=== PATIENT | female | born 1995 | race Caucasian/White ===

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

== ENCOUNTER 2019-11-19 01:31 | Emergency (ER) | payer OTHER ==
[~2019-11-19] VITALS: Ht 162.5 cm; Wt 122.5 kg
[2019-11-19 01:47] VITALS: BP 127/68
[2019-11-19 02:27] LABS: BILIRUBIN NEGATIVE (NEGATIVE); BLOOD 3+ (NEGATIVE); CLARITY CLOUDY (CLEAR); COLOR YELLOW (YELLOW); GLUCOSE NEGATIVE (NEGATIVE); KETONE NEGATIVE (NEGATIVE)
[2019-11-19 02:28] LABS: LEUKO ESTERASE 2+ (NEGATIVE); NITRITE POSITIVE (NEGATIVE); UROBILINOGEN 0.2 E.U./dl (0.2-1.0)
[2019-11-19 02:32] LABS: RBC TNTC rbc/hpf (0-2)
[2019-11-19 02:33] LABS: BACTERIA TRACE; WBC 41-50 wbc/hpf (0-5); YEAST 2+
[2019-11-19 02:38] LABS: BASO # 0.1 10*3/uL (0.0-0.1); BASO % 0.3 % (0.0-1.0); EOS # 0.1 10*3/uL (0.0-0.4); EOS % 0.3 % (1.0-4.0); HEMATOCRIT 43.2 % (37.0-47.0); LYMPH # 2.4 10*3/uL (1.3-4.4); LYMPH % 14.4 % (27.0-41.0); MEAN CELL VOLUME 84.4 fl (81.0-99.0); MEAN CORPUSCULAR HGB 26.4 pg (27.0-31.0); MEAN CORPUSCULAR HGB CONC 31.3 g/dl (33.0-37.0); MEAN PLATELET VOLUME 10.4 fl (9.6-12.3); MONO # 0.8 10*3/uL (0.1-1.0); MONO % 4.8 % (3.0-9.0); NEUT # 13.2 10*3/uL (2.3-7.9); NEUT % 79.9 % (47.0-73.0); PLATELET COUNT AUTOMATED 367 10*3/uL (130-400); RED BLOOD COUNT 5.12 10*6/uL (4.10-5.10); RED CELL DISTRI WIDTH 13.4 % (0-14.5); WHITE BLOOD COUNT 16.6 10*3/uL (4.8-10.8)
[2019-11-19 02:54] LABS: ALBUMIN 3.6 gm/dl (3.1-4.5); ALKALINE PHOSPHATASE 81 U/L (45-117); BUN 13 mg/dl (7-24); CHLORIDE 106 mmol/L (98-107); CREATININE 0.94 mg/dL (0.55-1.02); LIPASE 121 U/L (73-393); POTASSIUM 3.6 mmol/L (3.5-5.1); SGOT/AST 14 IU/L (3-35); SGPT/ALT 22 U/L (12-78); SODIUM 139 mmol/L (136-145); TOTAL PROTEIN 7.6 gm/dL (6.4-8.2)
[2019-11-19] MEDS ORDERED: CEPHALEXIN500 M1 PO ×2 (03:07→03:40)
== END 2019-11-19 03:42 | disposition home or self-care (01) ==
LOC: ED 01:31
PROVIDERS: Emergency Medicine
DX: N39.0 Urinary tract infection, site not specified (principal)

== ENCOUNTER 2019-12-19 18:33 | Emergency (ER) | payer OTHER ==
[~2019-12-19] VITALS: Wt 122.5 kg
[~2019-12-19 18:33] MED LIST changes: +CEPHALEXIN500 M1 PO
[2019-12-19 18:37] VITALS: BP 142/66
[2019-12-19 19:15] LABS: BILIRUBIN NEGATIVE (NEGATIVE); BLOOD NEGATIVE (NEGATIVE); CLARITY SL CLOUDY (CLEAR); COLOR YELLOW (YELLOW); GLUCOSE NEGATIVE (NEGATIVE); KETONE NEGATIVE (NEGATIVE); SPECIFIC GRAVITY 1.005 (1.005-1.030)
[2019-12-19 19:16] LABS: LEUKO ESTERASE NEGATIVE (NEGATIVE); NITRITE NEGATIVE (NEGATIVE); UROBILINOGEN 0.2 E.U./dl (0.2-1.0)
[2019-12-19 19:20] LABS: RBC 0-2 rbc/hpf (0-2); WBC 0-2 wbc/hpf (0-5)
[2019-12-19 19:21] LABS: BACTERIA 1+
[2019-12-19 19:36] LABS: BASO # 0.1 10*3/uL (0.0-0.1); BASO % 0.5 % (0.0-1.0); EOS # 0.1 10*3/uL (0.0-0.4); EOS % 0.5 % (1.0-4.0); HEMATOCRIT 43.8 % (37.0-47.0); LYMPH # 2.4 10*3/uL (1.3-4.4); LYMPH % 22.3 % (27.0-41.0); MEAN CELL VOLUME 84.9 fl (81.0-99.0); MEAN CORPUSCULAR HGB 26.9 pg (27.0-31.0); MEAN CORPUSCULAR HGB CONC 31.7 g/dl (33.0-37.0); MEAN PLATELET VOLUME 10.5 fl (9.6-12.3); MONO # 0.8 10*3/uL (0.1-1.0); MONO % 7.1 % (3.0-9.0); NEUT # 7.6 10*3/uL (2.3-7.9); NEUT % 69.3 % (47.0-73.0); PLATELET COUNT AUTOMATED 316 10*3/uL (130-400); RED BLOOD COUNT 5.16 10*6/uL (4.10-5.10); WHITE BLOOD COUNT 10.9 10*3/uL (4.8-10.8)
[2019-12-19 19:54] LABS: ALBUMIN 3.7 gm/dl (3.1-4.5); ALKALINE PHOSPHATASE 79 U/L (45-117); BUN 10 mg/dl (7-24); CHLORIDE 107 mmol/L (98-107); CREATININE 0.81 mg/dL (0.55-1.02); POTASSIUM 3.8 mmol/L (3.5-5.1); SGOT/AST 17 IU/L (3-35); SGPT/ALT 29 U/L (12-78); SODIUM 137 mmol/L (136-145)
[2019-12-19 19:57] LABS: BETA-HCG, QUANT < 1.0 mIU/mL (1-3)
[2019-12-19] MEDS ORDERED: ZOFRAN4 MG PO (20:04)
[2019-12-19] MEDS ORDERED: PRILOSEC20 M1 PO (20:04)
== END 2019-12-19 20:07 | disposition home or self-care (01) ==
LOC: ED 18:33
PROVIDERS: Emergency Medicine; Nurse Practitioner Family
DX: K29.70 Gastritis, unspecified, without bleeding (principal)

== ENCOUNTER 2020-02-06 12:51 | Emergency (ER) | payer OTHER ==
[~2020-02-06] VITALS: Ht 162.5 cm; Wt 127.0 kg
[~2020-02-06 12:51] MED LIST changes: +PRILOSEC20 M1 PO; +ZOFRAN4 MG PO
[2020-02-06 12:56] VITALS: BP 138/90
[2020-02-06] MEDS ORDERED: ESCITALOPRAM OX20 MG PO (12:57)
[2020-02-06] MEDS ORDERED: BUPROPION ER100 M1 PO (12:57)
== END 2020-02-06 13:54 | disposition home or self-care (01) ==
LOC: ED 12:51
DX: S60.212A Contusion of left wrist, initial encounter (principal); Z79.899 Other long term (current) drug therapy; W18.39XA Other fall on same level, initial encounter; Y93.89 Activity, other specified; Y92.89 Other specified places as the place of occurrence of the external cause; Y99.8 Other external cause status

== ENCOUNTER 2020-03-04 19:31 | Emergency (ER) | payer OTHER ==
[~2020-03-04] VITALS: Ht 162.5 cm; Wt 131.5 kg
[~2020-03-04 19:31] MED LIST changes: +BUPROPION ER100 M1 PO; +ESCITALOPRAM OX20 MG PO
[2020-03-04 20:11] LABS: BASO # 0.1 10*3/uL (0.0-0.1); BASO % 0.5 % (0.0-1.0); EOS # 0.1 10*3/uL (0.0-0.4); EOS % 0.5 % (1.0-4.0); HEMATOCRIT 42.2 % (37.0-47.0); LYMPH # 2.5 10*3/uL (1.3-4.4); LYMPH % 22.9 % (27.0-41.0); MEAN CELL VOLUME 84.9 fl (81.0-99.0); MEAN CORPUSCULAR HGB 27.2 pg (27.0-31.0); MEAN PLATELET VOLUME 10.2 fl (9.6-12.3); MONO # 0.8 10*3/uL (0.1-1.0); NEUT # 7.5 10*3/uL (2.3-7.9); NEUT % 68.8 % (47.0-73.0); PLATELET COUNT AUTOMATED 366 10*3/uL (130-400); RED BLOOD COUNT 4.97 10*6/uL (4.10-5.10); RED CELL DISTRI WIDTH 13.3 % (0-14.5); WHITE BLOOD COUNT 10.9 10*3/uL (4.8-10.8)
[2020-03-04 20:23] LABS: BILIRUBIN Negative (Negative); BLOOD Negative (Negative); CLARITY Clear (Clear); COLOR Yellow (Yellow); GLUCOSE Negative (Negative); KETONE Negative (Negative); LEUKO ESTERASE Negative (Negative); NITRITE Negative (Negative); PH 5.5 (4.5-8.0); SPECIFIC GRAVITY 1.015 (1.001-1.030); UROBILINOGEN 0.2 E.U./dl (0.0-1.0)
[2020-03-04 20:34] LABS: ALBUMIN 3.8 gm/dl (3.1-4.5); ALKALINE PHOSPHATASE 74 U/L (45-117); BUN 9 mg/dl (7-24); CHLORIDE 107 mmol/L (98-107); CREATININE 1.03 mg/dL (0.55-1.02); LIPASE 111 U/L (73-393); POTASSIUM 3.6 mmol/L (3.5-5.1); SGOT/AST 13 IU/L (3-35); SGPT/ALT 26 U/L (12-78); SODIUM 139 mmol/L (136-145); TOTAL PROTEIN 7.7 gm/dL (6.4-8.2)
[2020-03-04 20:43] LABS: BACTERIA 1+; RBC 0-2 rbc/hpf (0-2)
[2020-03-04 20:52] VITALS: BP 105/54
== END 2020-03-04 21:05 | disposition home or self-care (01) ==
LOC: ED 19:31
PROVIDERS: Physician Assistant
DX: R11.2 Nausea with vomiting, unspecified (principal); Z79.899 Other long term (current) drug therapy

== ENCOUNTER 2020-03-06 19:03 | Emergency (ER) | payer OTHER ==
[~2020-03-06] VITALS: Ht 162.5 cm; Wt 131.5 kg
[2020-03-06 19:53] LABS: BASO # 0.1 10*3/uL (0.0-0.1); BASO % 0.4 % (0.0-1.0); EOS % 0.2 % (1.0-4.0); HEMATOCRIT 46.1 % (37.0-47.0); LYMPH # 2.2 10*3/uL (1.3-4.4); LYMPH % 13.5 % (27.0-41.0); MEAN CELL VOLUME 84.7 fl (81.0-99.0); MEAN CORPUSCULAR HGB 26.8 pg (27.0-31.0); MEAN CORPUSCULAR HGB CONC 31.7 g/dl (33.0-37.0); MEAN PLATELET VOLUME 10.2 fl (9.6-12.3); MONO # 0.8 10*3/uL (0.1-1.0); MONO % 4.8 % (3.0-9.0); NEUT # 12.9 10*3/uL (2.3-7.9); NEUT % 80.8 % (47.0-73.0); PLATELET COUNT AUTOMATED 392 10*3/uL (130-400); RED BLOOD COUNT 5.44 10*6/uL (4.10-5.10); RED CELL DISTRI WIDTH 13.1 % (0-14.5)
[2020-03-06 20:14] LABS: ALBUMIN 3.8 gm/dl (3.1-4.5); ALKALINE PHOSPHATASE 76 U/L (45-117); BUN 9 mg/dl (7-24); CHLORIDE 108 mmol/L (98-107); CREATININE 0.92 mg/dL (0.55-1.02); LIPASE 113 U/L (73-393); POTASSIUM 3.9 mmol/L (3.5-5.1); SGOT/AST 13 IU/L (3-35); SGPT/ALT 27 U/L (12-78); SODIUM 139 mmol/L (136-145); TOTAL PROTEIN 8.1 gm/dL (6.4-8.2)
[2020-03-06 20:18] LABS: BILIRUBIN Negative (Negative); BLOOD 2+ (Negative); CLARITY Clear (Clear); COLOR Yellow (Yellow); GLUCOSE Negative (Negative); KETONE Trace (Negative); LEUKO ESTERASE Negative (Negative); NITRITE Negative (Negative); PH 5.5 (4.5-8.0); UROBILINOGEN 0.2 E.U./dl (0.0-1.0)
[2020-03-06 20:31] LABS: BACTERIA TRACE; WBC 0-2 wbc/hpf (0-5)
[2020-03-06 21:16] VITALS: BP 128/78
[2020-03-06] MEDS ORDERED: AUGMENTIN 875-875 MG PO ×2 (21:42)
[2020-03-06] MEDS ORDERED: ZOFRAN4 MG PO ×2 (21:42)
== END 2020-03-06 22:36 | disposition home or self-care (01) ==
LOC: ED 19:03
PROVIDERS: Nurse Practitioner Family
DX: R10.30 Lower abdominal pain, unspecified (principal); Z79.899 Other long term (current) drug therapy; Z87.891 Personal history of nicotine dependence

== ENCOUNTER 2020-04-27 04:02 | Emergency (ER) | payer OTHER ==
[~2020-04-27] VITALS: Ht 162.5 cm; Wt 131.5 kg
[~2020-04-27 04:02] MED LIST changes: +AUGMENTIN 875-875 MG PO
[2020-04-27 04:10] VITALS: BP 125/76
== END 2020-04-27 06:50 | disposition home or self-care (01) ==
LOC: ED 04:02
DX: J02.9 Acute pharyngitis, unspecified (principal); R51.9 Headache, unspecified

== ENCOUNTER 2021-01-01 21:05 | Emergency (ER) | payer OTHER ==
[2021-01-01 21:11] VITALS: BP 147/93
[2021-01-01] MEDS ORDERED: AMOXICILLIN500 M2 PO (21:27)
== END 2021-01-01 21:34 | disposition home or self-care (01) ==
LOC: ED 21:05
DX: J02.9 Acute pharyngitis, unspecified (principal)

== ENCOUNTER 2021-01-08 16:42 | Emergency (ER) | payer OTHER ==
[~2021-01-08] VITALS: Ht 162.5 cm; Wt 130.6 kg
[~2021-01-08 16:42] MED LIST changes: +AMOXICILLIN500 M2 PO
[2021-01-08 16:53] VITALS: BP 116/62
== END 2021-01-08 17:22 ==
LOC: ED 16:42
DX: U07.1 COVID-19 (principal); R05 Cough; R06.02 Shortness of breath; R10.9 Unspecified abdominal pain; R11.10 Vomiting, unspecified

== ENCOUNTER 2021-11-23 13:36 | Emergency (ER) | payer OTHER ==
[~2021-11-23] VITALS: Ht 162.5 cm; Wt 127.9 kg
[2021-11-23 13:55] VITALS: BP 126/89
[2021-11-23] MEDS ORDERED: NIKKI 3 MG-0.01 EAC1 PO (13:56)
[2021-11-23] MEDS ORDERED: OXCARBAZEPINE300 M1 PO (13:57)
[2021-11-23] MEDS ORDERED: ATOMOXETINE HCL80 MG PO (13:57)
[2021-11-23] MEDS ORDERED: VENLAFAXINE HYD75 M3 PO (13:57)
[2021-11-23 16:15] LABS: BASO # 0.1 10*3/uL (0.0-0.1); BASO % 0.6 % (0.0-1.0); EOS # 0.2 10*3/uL (0.0-0.4); EOS % 1.2 % (1.0-4.0); HEMATOCRIT 40.8 % (37.0-47.0); LYMPH # 3.2 10*3/uL (1.3-4.4); LYMPH % 25.3 % (27.0-41.0); MEAN CELL VOLUME 89.3 fl (81.0-99.0); MEAN CORPUSCULAR HGB 29.1 pg (27.0-31.0); MEAN CORPUSCULAR HGB CONC 32.6 g/dl (33.0-37.0); MEAN PLATELET VOLUME 10.8 fl (9.6-12.3); MONO # 0.7 10*3/uL (0.1-1.0); MONO % 5.9 % (3.0-9.0); NEUT # 8.3 10*3/uL (2.3-7.9); NEUT % 66.6 % (47.0-73.0); PLATELET COUNT AUTOMATED 381 10*3/uL (130-400); RED BLOOD COUNT 4.57 10*6/uL (4.10-5.10); RED CELL DISTRI WIDTH 13.3 % (0-14.5); WHITE BLOOD COUNT 12.5 10*3/uL (4.8-10.8)
[2021-11-23 16:27] LABS: BILIRUBIN Negative (Negative); BLOOD Negative (Negative); CLARITY Clear (Clear); COLOR Yellow (Yellow); GLUCOSE Negative (Negative); KETONE Negative (Negative); LEUKO ESTERASE Negative (Negative); NITRITE Negative (Negative); UROBILINOGEN 0.2 E.U./dl (0.0-1.0)
[2021-11-23 16:37] LABS: ALKALINE PHOSPHATASE 54 U/L (45-117); BUN 6 mg/dl (7-24); CHLORIDE 111 mmol/L (98-107); CREATININE 0.78 mg/dL (0.55-1.02); POTASSIUM 3.5 mmol/L (3.5-5.1); SGOT/AST 17 IU/L (3-35); SGPT/ALT 42 U/L (12-78); SODIUM 141 mmol/L (136-145); TOTAL PROTEIN 6.9 gm/dL (6.4-8.2)
[2021-11-23 16:43] LABS: RBC 0-2 rbc/hpf (0-2)
== END 2021-11-23 17:37 | disposition home or self-care (01) ==
LOC: ED 13:36
PROVIDERS: Emergency Medicine
DX: N92.0 Excessive and frequent menstruation with regular cycle (principal); F17.200 Nicotine dependence, unspecified, uncomplicated; Z79.899 Other long term (current) drug therapy

== ENCOUNTER 2022-03-03 17:24 | Emergency (ER) | payer OTHER ==
[~2022-03-03] VITALS: Ht 162.5 cm; Wt 127.0 kg
[~2022-03-03 17:24] MED LIST changes: +ATOMOXETINE HCL80 MG PO; +NIKKI 3 MG-0.01 EAC1 PO; +OXCARBAZEPINE300 M1 PO; +VENLAFAXINE HYD75 M3 PO
[2022-03-03 17:38] VITALS: BP 147/85
[2022-03-03 19:05] LABS: BILIRUBIN Negative (Negative); BLOOD 3+ (Negative); CLARITY Clear (Clear); COLOR Yellow (Yellow); GLUCOSE Negative (Negative); KETONE Trace (Negative); LEUKO ESTERASE Negative (Negative); NITRITE Negative (Negative)
[2022-03-03 19:12] LABS: RBC 21-30 rbc/hpf (0-2)
[2022-03-03 19:13] LABS: BACTERIA 1+
== END 2022-03-03 20:53 | disposition home or self-care (01) ==
LOC: ED 17:24
PROVIDERS: Physician Assistant
DX: N91.2 Amenorrhea, unspecified (principal); F17.200 Nicotine dependence, unspecified, uncomplicated; Z79.899 Other long term (current) drug therapy

== ENCOUNTER 2022-09-28 22:00 | Emergency (ER) | payer OTHER ==
[~2022-09-28] VITALS: Ht 162.5 cm; Wt 134.7 kg
[2022-09-28 22:23] VITALS: BP 145/90
[2022-09-29] MEDS ORDERED: VIENVA-28 TABL1 EACH PO (00:10)
[2022-09-29] MEDS ORDERED: ONDANSETRON HYDR4 MG PO (00:10)
[2022-09-29] MEDS ORDERED: OXCARBAZEPINE150 MG PO (00:11)
[2022-09-29] MEDS ORDERED: HYDROXYZINE PAM25 M1 PO (00:12)
[2022-09-29] MEDS ORDERED: GUANFACINE HCL1 M1 PO (00:12)
[2022-09-29 00:57] LABS: BASO # 0.1 10*3/uL (0.0-0.1); BASO % 0.5 % (0.0-1.0); EOS # 0.1 10*3/uL (0.0-0.4); EOS % 1.2 % (1.0-4.0); HEMATOCRIT 40.3 % (37.0-47.0); LYMPH # 3.7 10*3/uL (1.3-4.4); LYMPH % 33.3 % (27.0-41.0); MEAN CELL VOLUME 84.5 fl (81.0-99.0); MEAN PLATELET VOLUME 10.4 fl (9.6-12.3); MONO # 0.7 10*3/uL (0.1-1.0); MONO % 6.7 % (3.0-9.0); NEUT # 6.4 10*3/uL (2.3-7.9); NEUT % 57.9 % (47.0-73.0); PLATELET COUNT AUTOMATED 374 10*3/uL (130-400); RED BLOOD COUNT 4.77 10*6/uL (4.10-5.10); RED CELL DISTRI WIDTH 13.7 % (0-14.5)
[2022-09-29 01:22] LABS: ALKALINE PHOSPHATASE 53 U/L (46-116); BUN 11 mg/dl (9-23); CHLORIDE 107 mmol/L (98-107); POTASSIUM 3.8 mmol/L (3.4-5.1); SGPT/ALT 34 U/L (10-49); TOTAL PROTEIN 7.6 gm/dL (6.0-8.0)
[2022-09-29 01:54] LABS: BILIRUBIN Negative (Negative); BLOOD Negative (Negative); CLARITY Clear (Clear); COLOR Yellow (Yellow); GLUCOSE Negative (Negative); KETONE Trace (Negative); LEUKO ESTERASE Negative (Negative); NITRITE Negative (Negative); PH 5.5 (4.5-8.0); SPECIFIC GRAVITY 1.025 (1.001-1.030)
[2022-09-29 02:47] LABS: WBC 0-2 wbc/hpf (0-5)
== END 2022-09-29 03:05 | disposition home or self-care (01) ==
LOC: ED 22:00
PROVIDERS: Emergency Medicine
DX: R11.10 Vomiting, unspecified (principal)

== ENCOUNTER 2024-04-11 08:53 | Emergency (ER) | payer OTHER ==
[~2024-04-11] VITALS: Ht 162.5 cm; Wt 144.7 kg
[~2024-04-11 08:53] MED LIST changes: +GUANFACINE HCL1 M1 PO; +HYDROXYZINE PAM25 M1 PO; +ONDANSETRON HYDR4 MG PO; +OXCARBAZEPINE150 MG PO; +VIENVA-28 TABL1 EACH PO
[2024-04-11] MEDS ORDERED: VOLNEA 0.15-0.1 EACH PO (09:20)
[2024-04-11] MEDS ORDERED: PANTOPRAZOLE SO40 MG PO (09:20)
[2024-04-11] MEDS ORDERED: FAMOTIDINE40 MG PO (09:20)
[2024-04-11 09:21] VITALS: BP 157/97
[2024-04-11] MEDS ORDERED: Acetaminophen/Oxycodone 5 MG/325 MG TABLET PO ONE (09:35)
[2024-04-11] MEDS ORDERED: MELOXICAM15 MG PO (09:37)
== END 2024-04-11 16:21 | disposition home or self-care (01) ==
LOC: ED 08:53
DX: M25.571 Pain in right ankle and joints of right foot (principal); M79.604 Pain in right leg; Z87.891 Personal history of nicotine dependence

== ENCOUNTER 2025-02-22 10:24 | Emergency (ER) | payer OTHER ==
[~2025-02-22] VITALS: Wt 141.5 kg
[~2025-02-22 10:24] MED LIST changes: +FAMOTIDINE40 MG PO; +MELOXICAM15 MG PO; +PANTOPRAZOLE SO40 MG PO; +VOLNEA 0.15-0.1 EACH PO
[2025-02-22 10:50] VITALS: BP 134/79
[2025-02-22] MEDS ORDERED: Metoclopramide Hydrochloride 10 MG/2 ML VIAL IV ONE (11:05)
[2025-02-22] MEDS ORDERED: SODIUM CHLORIDE 0.9% 1,000 ML IV ONE (11:05)
[2025-02-22] MEDS ORDERED: diphenhydrAMINE hydrochloride 50 MG/ML VIAL IV ONE (11:05)
== END 2025-02-22 15:54 | disposition home or self-care (01) ==
LOC: ED 10:24
DX: G43.909 Migraine, unspecified, not intractable, without status migrainosus (principal)

== ENCOUNTER 2025-02-28 17:00 | Emergency (ER) | payer OTHER ==
[~2025-02-28] VITALS: Ht 162.5 cm; Wt 140.6 kg
[2025-02-28 18:03] LABS: BASO # 0.1 10*3/uL (0.0-0.1); BASO % 0.6 % (0.0-1.0); EOS # 0.4 10*3/uL (0.0-0.4); EOS % 3.1 % (1.0-4.0); MEAN CELL VOLUME 81.9 fl (81.0-99.0); MEAN CORPUSCULAR HGB 26.7 pg (27.0-31.0); MEAN PLATELET VOLUME 9.9 fl (9.6-12.3); MONO # 1.0 10*3/uL (0.1-1.0); MONO % 8.4 % (3.0-9.0); NEUT # 7.5 10*3/uL (2.3-7.9); NEUT % 63.1 % (47.0-73.0); NUCLEATED RED BLOOD CELL 0.0 % (0.0-0.0); NUCLEATED RED BLOOD CELL 0.0 10*3/uL (0.0-0.0); PLATELET COUNT AUTOMATED 347 10*3/uL (130-400); RED CELL DISTRI WIDTH 13.7 % (0-14.5)
[2025-02-28] MEDS ORDERED: Tdap Vaccine 0.5 ML SYR (Adult Vaccine) IM ONE (18:20)
[2025-02-28 18:26] LABS: BUN 10 mg/dl (9-23)
[2025-02-28 19:09] VITALS: BP 120/76
[2025-02-28] MEDS ORDERED: CLINDAMYCIN HC300 MG PO (19:11)
[2025-02-28] MEDS ORDERED: ACETAMINOPHEN 325 MG TAB PO ONE (19:15)
== END 2025-02-28 19:42 | disposition home or self-care (01) ==
LOC: ED 17:00
PROVIDERS: Nurse Practitioner Family
DX: S60.511A Abrasion of right hand, initial encounter (principal); S60.512A Abrasion of left hand, initial encounter; L03.114 Cellulitis of left upper limb; L03.113 Cellulitis of right upper limb; G43.909 Migraine, unspecified, not intractable, without status migrainosus; Z87.440 Personal history of urinary (tract) infections; W55.03XA Scratched by cat, initial encounter; Y93.89 Activity, other specified; Y92.89 Other specified places as the place of occurrence of the external cause; Y99.8 Other external cause status